=== PATIENT | male | born 1970 | race Caucasian/White ===

== ENCOUNTER 2023-12-06 19:05 | Emergency (ER) | payer OTHER ==
[~2023-12-06] VITALS: Ht 165.1 cm; Wt 61.2 kg
[2023-12-06 19:14] VITALS: BP 116/72; PULSE 60; RESP 18; TEMP 98; O2SAT 96
[2023-12-06] MEDS: KETOROLAC 30 MG/ML VIAL IM ONE (20:59)
[2023-12-06] MEDS ORDERED: IBUP-2213 PO (21:18)
== END 2023-12-06 21:24 | disposition home or self-care (01) ==
LOC: MED 19:05
DX: S60.222A Contusion of left hand, initial encounter (principal); Z79.899 Other long term (current) drug therapy; W22.8XXA Striking against or struck by other objects, initial encounter; Y92.89 Other specified places as the place of occurrence of the external cause; Y93.89 Activity, other specified; Y99.8 Other external cause status
CPT/HCPCS: 73130; 96372; 99283; J1885